=== PATIENT | female | born 1950 | race Caucasian/White ===

== ENCOUNTER 2016-11-06 21:53 | Emergency (ER) | payer MEDICARE ==
[2016-11-06 13:32] LABS: BASOPHILS 0.3 %; BASOPHILS ABSOLUTE 0.02 10/3/uL (0.0-0.16); EOSINOPHILS 3.5 %; EOSINOPHILS ABSOLUTE 0.23 10/3/uL (0.0-0.53); ER CBC TAT 0 Hrs 09 Mins; HEMATOCRIT 38.5 % (36.0-48.0); HEMOGLOBIN 12.4 g/dL (12.0-16.0); IMMATURE GRANULOCYTES 0.2 %; IMMATURE GRANULOCYTES ABSOLUTE 0.01 10/3/uL (0.0-0.11); LYMPHOCYTES 26.1 %; LYMPHOCYTES ABSOLUTE 1.72 10/3/uL (0.67-4.30); MEAN CORPUS HGB CONC 32.2 g/dL (32.0-36.0); MEAN CORPUSCULAR HEMOGLOB 28.1 pg (26.0-34.0); MEAN CORPUSCULAR VOLUME 87.1 fL (80-100); MEAN PLATELET VOLUME 9.4 fL (9.2-13.0); MONOCYTES 5.8 %; MONOCYTES ABSOLUTE 0.38 10/3/uL (0.21-1.20); NEUTROPHILS 64.1 %; NEUTROPHILS ABSOLUTE 4.23 10/3/uL (2.02-8.40); PLATELET COUNT 294 10/3/uL (150-400); RBC DISTRIBUTION WIDTH 13.4 % (12.0-16.0); RED CELL COUNT 4.42 10/6/uL (4.0-5.6); WHITE BLOOD CELLS 6.6 10/3/uL (4.5-10.5)
[2016-11-06 13:33] LABS: MANUAL DIFF NO %
[2016-11-06 13:45] LABS: ASCORBIC ACID (UR NOT ORDER) NEG (NEG); BILIRUBIN, URINE NEGATIVE (NEG); ER URINALYSIS TAT 0 Hrs 22 Mins; KETONE, URINE NEGATIVE (NEG); LEUKOCYTE ESTERASE(NOT OR NEG (NEG); NITRITE (URINE) NEG (NEG); WBC (NOT ORDERED) (RFLEX) < 1 (0-5)
[2016-11-06 13:50] LABS: ALBUMIN 3.7 G/DL (3.5-5.0); ALKALINE PHOSPHATASE 84 U/L (45-117); BUN (BLOOD UREA NITROGEN) 12 MG/DL (6-23); CALCIUM, SERUM 8.8 MG/DL (8.5-10.4); CHLORIDE, SERUM 107 MMOL/L (96-112); CO2 (CARBON DIOXIDE) 28 MMOL/L (24-34); CREATININE 0.89 MG/DL (0.55-1.02); GFR AFRICAN AMERICAN 78 ML/MIN (>=60); GFR NON AFRICAN AMERICAN 68 ML/MIN (>=60); GLOBULIN 3.6 G/DL (2.5-4.1); GLUCOSE, SERUM 105 MG/DL (60-99); POTASSIUM, SERUM 3.8 MMOL/L (3.5-5.3); SGOT(AST) 17 U/L (5-40); SGPT(ALT) 28 U/L (5-65); SODIUM, SERUM 142 MMOL/L (135-148); TOTAL BILIRUBIN 0.3 MG/DL (0-1.2); TOTAL PROTEIN 7.3 G/DL (6.0-8.5)
[~2016-11-06 21:53] MED LIST: DENIES HOME MEDS
[2017-04-13] MEDS ORDERED: LAN125 PO (15:32)
[2017-04-13] MEDS ORDERED: L40 PO (15:32)
[2017-04-13] MEDS ORDERED: SUCR PO (15:33)
[2017-04-13] MEDS ORDERED: FLECAINIDE50 MG PO (15:34)
[2017-04-13] MEDS ORDERED: TOPXL50 PO (15:35)
[2017-04-13] MEDS ORDERED: PR25 PO (15:35)
[2017-04-13] MEDS ORDERED: KLOR-CON 1010 MEQ PO (15:36)
[2017-04-13] MEDS ORDERED: BENTYL20 PO (15:36)
[2017-04-13] MEDS ORDERED: CYMBALTA60 PO (15:37)
[2017-04-13] MEDS ORDERED: PRILOSEC40 MG PO (15:37)
[2017-04-13] MEDS ORDERED: MEVACOR40 MG PO (15:37)
[2017-04-13] MEDS ORDERED: IBU600 PO (15:38)
[2017-04-13] MEDS ORDERED: NEUR800 PO (15:38)
[2017-04-25] MEDS ORDERED: CYMBALTA60 PO (18:31)
[2017-04-25] MEDS ORDERED: VOLT75 PO (18:31)
[2017-04-25] MEDS ORDERED: BENTYL20 PO (18:31)
[2017-04-25] MEDS ORDERED: L40 PO (18:32)
[2017-04-25] MEDS ORDERED: NEUR800 PO (18:32)
[2017-04-25] MEDS ORDERED: TOPXL50 PO (18:33)
[2017-04-25] MEDS ORDERED: KDUR10 PO (18:33)
[2017-04-25] MEDS ORDERED: MEVACOR40 MG PO (18:33)
[2017-04-25] MEDS ORDERED: PR25 PO (18:33)
[2017-04-25] MEDS ORDERED: ASAB PO (18:34)
[2017-04-25] MEDS ORDERED: DETROLLA4 PO (18:34)
[2017-04-25] MEDS ORDERED: SUCR PO (18:34)
[2017-04-25] MEDS ORDERED: CEFT2 PO (18:35)
[2017-04-25] MEDS ORDERED: PERCOCET 7.5/321 TAB PO (18:35)
[2017-04-25] MEDS ORDERED: FLECAINIDE50 MG PO (18:36)
[2017-04-25] MEDS ORDERED: MEDROLPAK4 PO (18:36)
[2017-04-25] MEDS ORDERED: LAN125 PO (18:36)
[2017-04-25] MEDS ORDERED: PRILOSEC40 MG PO (18:37)
[2017-04-25] MEDS ORDERED: IBU600 PO (18:37)
[2017-04-28] MEDS ORDERED: NITROSTAT0.4 MG SL (12:14)
== END 2016-11-06 23:42 | disposition home or self-care (01) ==
LOC: ER 21:53
PROVIDERS: Emergency Medicine
DX: R10.9 Unspecified abdominal pain (principal); I10 Essential (primary) hypertension
CPT/HCPCS: 74177; 80053; 81001; 83690; 85025; 96374; 99284; Q9967